=== PATIENT | male | born 1940 | race Hispanic/Latino ===

== ENCOUNTER 2017-08-29 13:16 | Emergency (ER) | payer OTHER ==
[2017-08-29 14:21] LABS: Potassium 4.8 mEq/L (3.6-5.0)
--- NOTE | 2017-08-29 14:28 | ER ---
Nurse's Notes [facility] Name: Winston Acuña Age: 77 yrs Sex: Male : 1940 Arrival Date: 08/29/2017 Time: 13:18 Bed 16 Private MD: Diagnosis: Potassium check - reported as abdnomal, now normal 4.8 Presentation: 08/29 13:30 Presenting complaint: Patient states: had a blood work yesterday and PCP called today hj because potassium was so high; unknown results; reports bloating;. Transition of care: patient was not received from another setting of care. Onset of symptoms was August 29, 2017. Care prior to arrival: None. 13:30 Method Of Arrival: Ambulatory 13:30 Acuity: ANIKA 3 hj Triage Assessment: 13:33 General: Appears in no apparent distress. uncomfortable, Behavior is calm, cooperative, hj appropriate for age. Pain: Complains of pain in abdomen. Historical: - Allergies: 13:33 No Known Drug Allergies; hj - Home Meds: 13:33 donepezil 10 mg Oral tab 1 tab once daily [Active]; fenofibrate 67mg Oral 1 cap once hj daily [Active]; gabapentin 300 mg Oral cap 1 cap 3 times per day [Active]; Januvia 50 mg Oral tab [Active]; losartan-hydrochlorothiazide 100-25 mg Oral tab 1 tab once daily [Active]; Novolin 70/30 [place] Sub-Q [Active]; omeprazole 20 mg Oral cpDR 1 cap once daily [Active]; simvastatin 40 mg Oral tab 1 tab once daily [Active]; venlafaxine 75 mg Oral tab 1 tab daily [Active]; - PMHx: 13:33 Dementia; Diabetes - IDDM; High Cholesterol; Hypertension; neuropathy; hj - PSHx: 13:33 Knee surgery; finger amputation; hj - Immunization history:: Adult Immunizations up to date. - Social history:: Smoking status: unknown. Screenin:52 Abuse screen: Denies threats or abuse. Nutritional screening: No deficits noted. la1 Tuberculosis screening: No symptoms or risk factors identified. Fall Risk None identified. Assessment: 13:52 General: Appears in no apparent distress. Behavior is calm, cooperative. Neuro: Level la1 of Consciousness is awake, alert, obeys commands. Neuro: Gait is steady, Speech is normal, Facial symmetry appears normal, Pupils are PERRLA. Cardiovascular: Denies chest pain, lightheadedness, nausea, palpitations, shortness of breath, vomiting, Capillary refill < 3 seconds Patient's skin is warm and dry. Respiratory: Airway is patent Respiratory effort is even, unlabored, Respiratory pattern is regular, symmetrical. GI: No signs and/or symptoms were reported involving the gastrointestinal system. GI: Abdomen is round non-distended. : No signs and/or symptoms were reported regarding the genitourinary system. 14:53 Reassessment: awaiting completion of D/C paperwork from [facility]. la1 Vital Signs: 13:33 BP 127 / 55; Pulse 83; Resp 18; Temp 97.8(TE); Pulse Ox 100% on R/A; Weight 84.82 kg; hj Height 5 ft. 2 in. (157.48 cm); 13:33 Body Mass Index 34.20 (84.82 kg, 157.48 cm) ED Course: 13:18 Patient arrived in ED. tw3 13:31 Triage completed. hj 13:32 Raudel Romero MD is Attending Physician. kdr 13:33 Arm band placed on right wrist. hj 13:36 Romain Toledo RN is Primary Nurse. la1 13:52 Placed in gown. Bed in low position. Call light in reach. la1 13:52 Inserted saline lock: 22 gauge in left hand, using aseptic technique. la1 14:26 Britton Barroso MD is Referral Physician. kdr 14:32 No provider procedures requiring assistance completed. IV discontinued, intact, la1 bleeding controlled, No redness/swelling at site. Pressure dressing applied. Administered Medications: No medications were administered Outcome: 14:27 Discharge ordered by . kdr 15:14 Discharged to home ambulatory. la1 15:14 Condition: stable 15:14 Discharge instructions given to patient, Instructed on discharge instructions, follow up and referral plans. medication usage, Demonstrated understanding of instructions, follow-up care. 15:15 Patient left the ED. la1 Signatures: Raudel Romero MD MD kdr Romain Toledo RN RN la1 Jose Curz Arrington RN RN Marissa Torres tw3 Corrections: (The following items were deleted from the chart) 13:35 13:33 Pulse 83bpm; Resp 18bpm; Pulse Ox 100% RA; Temp 97.8F Temporal; 84.82 kg; Height hj 5 ft. 2 in.; BMI: 34.2; hj
--- NOTE | 2017-08-29 14:28 | EDPHYS ---
Physician Documentation [facility] Name: Winston Acuña Age: 77 yrs Sex: Male : 1940 Arrival Date: 08/29/2017 Time: 13:18 Bed 16 Private MD: ED Physician Raudel Romero HPI: 08/29 14:29 This 77 yrs old Male presents to ER via Ambulatory with complaints of HIGH kdr POTASSIUM. 14:29 The patient states that he had his blood drawn yesterday and has been told that his kdr potassium was high (6.0). He spoke with Dr. Morales who asked that the patient come back to the ED for Kayexalate since he could not find any to give him as an ooutpatient. 18:52 Onset: The symptoms/episode began/occurred yesterday. Severity of symptoms: At their kdr worst the symptoms were very mild in the emergency department the symptoms are unchanged have resolved. The patient has not recently seen a physician. Historical: - Allergies: 13:33 No Known Drug Allergies; - Home Meds: 13:33 donepezil 10 mg Oral tab 1 tab once daily [Active]; fenofibrate 67mg Oral 1 cap once hj daily [Active]; gabapentin 300 mg Oral cap 1 cap 3 times per day [Active]; Januvia 50 mg Oral tab [Active]; losartan-hydrochlorothiazide 100-25 mg Oral tab 1 tab once daily [Active]; Novolin 70/30 [place] Sub-Q [Active]; omeprazole 20 mg Oral cpDR 1 cap once daily [Active]; simvastatin 40 mg Oral tab 1 tab once daily [Active]; venlafaxine 75 mg Oral tab 1 tab daily [Active]; - PMHx: 13:33 Dementia; Diabetes - IDDM; High Cholesterol; Hypertension; neuropathy; hj - PSHx: 13:33 Knee surgery; finger amputation; hj - Immunization history:: Adult Immunizations up to date. - Social history:: Smoking status: unknown. ROS: 18:52 Constitutional: Negative for fever, chills, and weight loss, Eyes: Negative for injury, kdr pain, redness, and discharge, ENT: Negative for injury, pain, and discharge, Neck: Negative for injury, pain, and swelling, Cardiovascular: Negative for chest pain, palpitations, and edema, Respiratory: Negative for shortness of breath, cough, wheezing, and pleuritic chest pain, Abdomen/GI: Negative for abdominal pain, nausea, vomiting, diarrhea, and constipation, Back: Negative for injury and pain, : Negative for injury, bleeding, discharge, and swelling, MS/Extremity: Negative for injury and deformity, Skin: Negative for injury, rash, and discoloration, Neuro: Negative for headache, weakness, numbness, tingling, and seizure activity. Psych: Negative for depression, anxiety, suicide ideation, homicidal ideation, and hallucinations, Allergy/Immunology: Negative for hives, rash, and allergies, Endocrine: Negative for neck swelling, polydipsia, polyuria, polyphagia, and marked weight changes, Hematologic/Lymphatic: Negative for swollen nodes, abnormal bleeding, and unusual bruising. Exam: 18:52 Constitutional: This is a well developed, well nourished patient who is awake, alert, kdr and in no acute distress. Head/Face: Normocephalic, atraumatic. Chest/axilla: Normal chest wall appearance and motion. Nontender with no deformity. No lesions are appreciated. Cardiovascular: Regular rate and rhythm with a normal S1 and S2. No gallops, murmurs, or rubs. Normal PMI, no JVD. No pulse deficits. Respiratory: Lungs have equal breath sounds bilaterally, clear to auscultation and percussion. No rales, rhonchi or wheezes noted. No increased work of breathing, no retractions or nasal flaring. Abdomen/GI: Soft, non-tender, with normal bowel sounds. No distension or tympany. No guarding or rebound. No evidence of tenderness throughout. Back: No spinal tenderness. No costovertebral tenderness. Full range of motion. Skin: Warm, dry with normal turgor. Normal color with no rashes, no lesions, and no evidence of cellulitis. MS/ Extremity: Pulses equal, no cyanosis. Neurovascular intact. Full, normal range of motion. Neuro: Awake and alert, GCS 15, oriented to person, place, time, and situation. Cranial nerves II-XII grossly intact. Motor strength 5/5 in all extremities. Sensory grossly intact. Cerebellar exam normal. Normal gait. Psych: Awake, alert, with orientation to person, place and time. Behavior, mood, and affect are within normal limits. Vital Signs: 13:33 BP 127 / 55; Pulse 83; Resp 18; Temp 97.8(TE); Pulse Ox 100% on R/A; Weight 84.82 kg; hj Height 5 ft. 2 in. (157.48 cm); 13:33 Body Mass Index 34.20 (84.82 kg, 157.48 cm) MDM: 14:27 Patient medically screened. kdr 18:52 Data reviewed: vital signs, nurses notes, lab test result(s). Counseling: I had a kdr detailed discussion with the patient and/or guardian regarding: the historical points, exam findings, and any diagnostic results supporting the discharge/admit diagnosis, lab results, the need for outpatient follow up. Physician consultation: Britton Barroso MD regarding patient's condition, and will see patient in office, next week. 08/29 13:32 Order name: Chem 7; Complete Time: 14:24 kdr 08/29 13:55 Order name: EKG - Nurse/Tech; Complete Time: 14:06 kdr Administered Medications: No medications were administered Disposition: 08/29/17 14:27 Discharged to Home. Impression: Potassium check - reported as abdnomal, now normal 4.8. - Condition is Stable. - Blank Diagnosis Outline, Medication Reconciliation Form, Thank You Letter form. - Follow up: Britton Barroso MD; When: As needed; Reason: If symptoms return, Further diagnostic work-up, Recheck today's complaints, Continuance of care, Re-evaluation by your physician. - Problem is new. - Symptoms are resolved. Signatures: Dispatcher [employer] EDMS Raudel Romero MD MD [facility] Romain Toledo RN RN scJose Cruz Seaman RN RN
[2017-08-29 15:32] VITALS: BP 127/55; TEMP 97.8; O2SAT 100
--- NOTE | 2017-08-30 07:38 | EKG ---
Test Date: 2017-08-29 Test Time: 14:06:57 [employer] Professor: LA MEASUREMENT RESULTS: Intervals: Rate: 49 NM: 212 QRSD: 74 QT: 432 QTc: 390 [place]: P: 48 NM: 212 QRS: 32 T: 101 INTERPRETIVE STATEMENTS: Sinus bradycardia with 1st degree AV block T wave abnormality, consider anterior ischemia Abnormal ECG Compared to ECG 07/24/2016 13:29:15 First degree AV block now present T-wave abnormality now present Possible ischemia now present ST (T wave) deviation no longer present Electronically Signed On 08-30-17 07:37:28 CDT by Bashir Pearl
== END 2017-08-29 15:15 | disposition home or self-care (01) ==
LOC: ER 13:16
DX: R79.89 Other specified abnormal findings of blood chemistry (principal); I10 Essential (primary) hypertension; E11.9 Type 2 diabetes mellitus without complications; F03.90 Unspecified dementia, unspecified severity, without behavioral disturbance, psychotic disturbance, mood disturbance, and anxiety; E78.00 Pure hypercholesterolemia, unspecified; Z79.4 Long term (current) use of insulin
CPT/HCPCS: 36415; 80048; 93005; 99283

== ENCOUNTER 2017-12-08 12:59 | Emergency (ER) | payer OTHER ==
[2017-12-08] MEDS ORDERED: ONDANSETRON 4 MG/2 ML VIAL ONE (13:48)
[2017-12-08] MEDS ORDERED: MORPHINE 4 MG/ML SYR ONE (13:48)
[2017-12-08 14:04] LABS: Protime INR 0.99
--- NOTE | 2017-12-08 14:04 | RAD REPORT ---
EXAM DESCRIPTION: RAD - Chest Single View - 12/08/2017 1:58 pm CLINICAL HISTORY: TRAUMA Chest pain. COMPARISON: Chest Single View dated 07/24/2016; CHEST PA AND LAT 2 VIEW dated 04/30/2015 FINDINGS: Portable technique limits examination quality. The lungs are grossly clear. The heart is normal in size. No displaced fractures. IMPRESSION: No acute intrathoracic process suspected.
--- NOTE | 2017-12-08 14:15 | EKG ---
Test Date: 2017-12-08 Test Time: 13:11:54 Almond Sorter: SANDRA MEASUREMENT RESULTS: Intervals: Rate: 55 MD: 206 QRSD: 74 QT: 410 QTc: 392 [place]: P: 52 MD: 206 QRS: 8 T: 65 INTERPRETIVE STATEMENTS: Sinus bradycardia Nonspecific T wave abnormality Abnormal ECG Compared to ECG 08/29/2017 14:06:57 First degree AV block no longer present Possible ischemia no longer present T-wave abnormality still present Electronically Signed On 12-08-17 14:15:11 CDT by Bashir Pearl
[2017-12-08 14:16] LABS: ALT/SGPT 30 U/L (12-78); AST/SGOT 23 U/L (15-37); Albumin 3.9 g/dL (3.4-5.0); Alkaline Phosphatase 51 U/L (45-117); Amylase Level 69 U/L (25-115); BUN Blood Urea Nitrogen 25 mg/dL (7-18); Bicarbonate 28 mmol/L (21-32); Bilirubin Direct < 0.1 mg/dL (0-0.2); Bilirubin Total 0.3 mg/dL (0.2-1.0); CKMB Creatine Kinase MB < 1.0 ng/mL (0.3-3.6); Creatine Phosphokinase 69 U/L (39-308); Glucose Level 351 mg/dL (74-106); Lipase 619 U/L (73-393); Magnesium 2.4 mg/dL (1.8-2.4); NT PRO-BNP 488 pg/mL (<450); Potassium 4.5 mmol/L (3.5-5.1); Protein, Total 7.5 g/dL (6.4-8.2); Sodium Level 134 mmol/L (136-145)
[2017-12-08 14:25] LABS: Absolute Lymphocytes (CBC) 0.8 K/uL (0.7-4.9); Absolute Monocytes 0.6 K/uL (0.1-1.3); Basophils % 0.6 % (0-1.3); Eosinophils % 2.6 % (0-4.4); Hematocrit 31.8 % (39.6-49.0); Lymphocytes % 13.5 % (15.3-44.8); MCH 31.2 pg (27.0-35.0); Monocytes % 10.8 % (3.3-12.3); RBC Red Blood Cell Count 3.53 M/uL (4.33-5.43)
[2017-12-08 14:43] LABS: Urine Blood NEGATIVE (NEG); Urine Glucose 3+ (NEG); Urine Protein 1+ (NEG); Urine Specific Gravity 1.015 (1.005-1.030); Urine pH 5.5 (5.0-7.0)
--- NOTE | 2017-12-08 14:52 | RAD REPORT ---
EXAM DESCRIPTION: VAS - Extrem Venous W Compress Paul - 12/08/2017 2:41 pm CLINICAL HISTORY: SWELLING Bilateral leg edema and swelling. COMPARISON: <Comparisons> TECHNIQUE: Real-time sonographic interrogation of the left and right lower extremity deep venous sys tems was performed. FINDINGS: Normal compressibility, flow augmentation, phasic flow and spontaneous flow is identified in both the left and right lower extremity deep venous systems. IMPRESSION: No sonographic evidence of left or right lower extremity deep venous thrombosis.
--- NOTE | 2017-12-08 15:10 | RAD REPORT ---
EXAM DESCRIPTION: CT - Chest Abd Pelvis Wo Con - 12/08/2017 2:53 pm CLINICAL HISTORY: Chest and abdomen pain. ABD PAIN COMPARISON: Chest Single View dated 12/08/2017; Chest Single View dated 07/24/2016 TECHNIQUE: A noncontrast study was performed. All CT scans are performed using dose optimization technique as appropriate and may include automated exposure control or mA/KV adjustment according to patient size. FINDINGS: The lungs are clear.No pleural or pericardial effusion.No intrathoracic adenopathy. The liver, spleen, pancreas, adrenal glands and kidneys are within normal limits. No bowel obstruction, free air, free fluid or abscess. Normal appendix. No pathologic lymphadenopath y in the abdomen or pelvis. Thin lucency is seen in the superior aspect of the body of the sternum compatible with nondisplaced f racture. IMPRESSION: Nondisplaced fracture involving the superior body of the sternum.
--- NOTE | 2017-12-08 16:30 | ER ---
Nurse's Notes [facility] Name: Winston Acuña Age: 77 yrs Sex: Male : 1940 Arrival Date: 12/08/2017 Time: 13:00 Bed 23 Private MD: Britton Barroso V Diagnosis: Fracture of sternum;Edema, unspecified Presentation: 12/08 13:05 Presenting complaint: Child states: fall that happened at 0200 this morning, fell face sv down onto carpet. Pt was dizzy beforehand. Head injury but denies LOC. c/o midsternal CP with breathing. Bruise noted to left hand. Care prior to arrival: None. Mechanism of Injury: Fall from standing position. 13:05 Acuity: ANIKA 3 sv 13:05 Method Of Arrival: Wheelchair sv 13:09 Transition of care: patient was not received from another setting of care. Onset of sv symptoms was December 08, 2017 at 02:00. 16:55 Risk Assessment: Do you want to hurt yourself or someone else? Patient reports no tl3 desire to harm self or others. Initial Sepsis Screen: Does the patient meet any 2 criteria? No. Patient's initial sepsis screen is negative. Does the patient have a suspected source of infection? No. Patient's initial sepsis screen is negative. Historical: - Allergies: 13:08 No Known Allergies; sv - Home Meds: 13:08 donepezil 10 mg Oral tab 1 tab once daily [Active]; fenofibrate 67mg Oral 1 cap once sv daily [Active]; gabapentin 300 mg Oral cap 1 cap 3 times per day [Active]; Januvia 50 mg Oral tab [Active]; losartan-hydrochlorothiazide 100-25 mg Oral tab 1 tab once daily [Active]; Novolin 70/30 [place] Sub-Q [Active]; omeprazole 20 mg Oral cpDR 1 cap once daily [Active]; simvastatin 40 mg Oral tab 1 tab once daily [Active]; venlafaxine 75 mg Oral tab 1 tab daily [Active]; - PMHx: 13:08 Dementia; Diabetes - IDDM; High Cholesterol; Hypertension; neuropathy; sv - PSHx: 13:08 Knee surgery; finger amputation; sv - Immunization history:: Adult Immunizations up to date. - Social history:: Smoking status: unknown. - Family history:: not pertinent. - Ebola Screening: : No symptoms or risks identified at this time. - Hospitalizations: : No recent hospitalization is reported. - History obtained from: son, daughter. Screenin:27 Abuse screen: Denies threats or abuse. Nutritional screening: No deficits noted. tl3 Tuberculosis screening: No symptoms or risk factors identified. Fall Risk Fall in past 12 months (25 points). Assessment: 13:17 General: Appears in no apparent distress. comfortable, well groomed, well developed, tl3 well nourished, Behavior is calm, cooperative, appropriate for age. Pain: Complains of pain in epigastric area. Neuro: Level of Consciousness is awake, alert, obeys commands, Oriented to person, place, time, situation, Appropriate for age. Neuro: Reports dizziness, since 2 am pt got up to go to the bathroom and felt dizzy, but got up anyway then fell forward and hit the carpet, C/o epigastric pain. Cardiovascular: Heart tones S1 S2 present Patient's skin is warm and dry. Respiratory: Airway is patent Respiratory effort is even, unlabored, Respiratory pattern is regular, symmetrical, Breath sounds are clear bilaterally. GI: No signs and/or symptoms were reported involving the gastrointestinal system. Abdomen is round. : No signs and/or symptoms were reported regarding the genitourinary system. EENT: No signs and/or symptoms were reported regarding the EENT system. Derm: No signs and/or symptoms reported regarding the dermatologic system. Musculoskeletal: No signs and/or symptoms reported regarding the musculoskeletal system. 14:23 Reassessment: No changes from previously documented assessment. Patient and/or family tl3 updated on plan of care and expected duration. Pain level reassessed. Patient is alert, oriented x 3, equal unlabored respirations, skin warm/dry/pink. ultrasound in progress, family at bedside. 16:14 Reassessment: No changes from previously documented assessment. Patient and/or family tl3 updated on plan of care and expected duration. Pain level reassessed. Patient is alert, oriented x 3, equal unlabored respirations, skin warm/dry/pink. pt resting quietly. 16:53 Reassessment: Patient appears in no apparent distress at this time. No changes from tl3 previously documented assessment. Patient and/or family updated on plan of care and expected duration. Pain level reassessed. Patient is alert, oriented x 3, equal unlabored respirations, skin warm/dry/pink. Vital Signs: 13:08 BP 154 / 62; Pulse 56; Resp 18; Pulse Ox 97% ; Weight 83.91 kg; Height 5 ft. 2 in. sv (157.48 cm); 14:23 BP 145 / 66; Pulse 53; Resp 18; Pulse Ox 98% ; tl3 15:38 BP 160 / 65 LA Supine (auto/reg); Pulse 51 MON; Resp 15 S; Pulse Ox 97% on R/A; jp3 16:14 BP 144 / 65; Pulse 51; Resp 18; Pulse Ox 100% ; tl3 13:08 Body Mass Index 33.84 (83.91 kg, 157.48 cm) sv Gen Coma Score: 13:08 Eye Response: spontaneous(4). Verbal Response: oriented(5). Motor Response: obeys sv commands(6). Total: 15. ED Course: 13:00 Patient arrived in ED. rg4 13:01 Britton Barroso MD is Private Physician. rg4 13:07 Triage completed. sv 13:15 Nguyen Aldana FNP is PHCP. kav 13:15 Reza Stevens MD is Attending Physician. kav 13:16 Yuridia Shelby, NATALIO is Primary Nurse. tl3 13:22 EKG done, by it technical support specialist. reviewed by Nguyen CHOUDHURY. at1 13:27 No provider procedures requiring assistance completed. tl3 13:27 Patient has correct armband on for positive identification. Bed in low position. Call tl3 light in reach. Adult w/ patient. Pulse ox on. NIBP on. 13:42 XRAY Chest (1 view) Sent. tl3 13:43 Basic Metabolic Panel Sent. tl3 13:58 XRAY Chest (1 view) In Process Unspecified. EDMS 14:39 US Extremity Venous W Compression Paul In Process Unspecified. EDMS 14:[address] via stretcher. sw 14:54 Chest Abd Pelvis Wo Con In Process Unspecified. EDMS 15:10 Second set of blood cultures drawn drawn via left A/C through a 23gauge butterfly jp3 needle. 15:32 Repeat lab(s) drawn. by ms, sent to lab. jp3 16:25 Britton Barroso MD is Referral Physician. kav 16:29 Bashir Pearl MD is Referral Physician. kav 16:53 IV discontinued, intact, bleeding controlled, No redness/swelling at site. Pressure tl3 dressing applied. 16:56 Arm band placed on right wrist. tl3 Administered Medications: 14:18 Drug: morphine 4 mg Route: IVP; Infused Over: 3 mins; Site: right antecubital; tl3 16:15 Follow up: Response: No adverse reaction; Pain is decreased tl3 14:18 Drug: Zofran 4 mg Route: IVP; Infused Over: 2 mins; Site: right antecubital; tl3 16:15 Follow up: Response: No adverse reaction tl3 Outcome: 16:30 Discharge ordered by MD. kav 16:54 Discharged to home via wheelchair, with family. tl3 16:54 Condition: stable 16:54 Discharge instructions given to patient, family, Instructed on discharge instructions, follow up and referral plans. medication usage, Demonstrated understanding of instructions, follow-up care, medications, Prescriptions given X 1. 16:56 Patient left the ED. tl3 Signatures: Dispatcher [employer] Marcela Mckinney, RN RN Nguyen Steinberg, SYRUP M[employer]ER SYRUP MIXER Lisa schultz, vice president fixed income EKG Tat1 Carol Shaw Rubi rg4 Yuridia Shelby RN RN tl3 Darryl Vigil jp3
--- NOTE | 2017-12-08 16:30 | EDPHYS ---
Physician Documentation [facility] Name: Winston Acuña Age: 77 yrs Sex: Male : 1940 Arrival Date: 12/08/2017 Time: 13:00 Bed 23 Private MD: Britton Barroso V ED Physician Reza Stevens HPI: 12/08 13:15 This 77 yrs old Male presents to ER via Wheelchair with complaints of Fall kav Injury. 14:29 Details of fall: The patient fell from a supine position, out of bed. Onset: The kav symptoms/episode began/occurred acutely, 11 hour(s) ago. Associated injuries: The patient sustained left breast. Severity of symptoms: At their worst the symptoms were severe, just prior to arrival. The patient has not experienced similar symptoms in the past. The patient has not recently seen a physician. Baseline creatinine 1.7. . Historical: - Allergies: 13:08 No Known Allergies; sv - Home Meds: 13:08 donepezil 10 mg Oral tab 1 tab once daily [Active]; fenofibrate 67mg Oral 1 cap once sv daily [Active]; gabapentin 300 mg Oral cap 1 cap 3 times per day [Active]; Januvia 50 mg Oral tab [Active]; losartan-hydrochlorothiazide 100-25 mg Oral tab 1 tab once daily [Active]; Novolin 70/30 [place] Sub-Q [Active]; omeprazole 20 mg Oral cpDR 1 cap once daily [Active]; simvastatin 40 mg Oral tab 1 tab once daily [Active]; venlafaxine 75 mg Oral tab 1 tab daily [Active]; - PMHx: 13:08 Dementia; Diabetes - IDDM; High Cholesterol; Hypertension; neuropathy; sv - PSHx: 13:08 Knee surgery; finger amputation; sv - Immunization history:: Adult Immunizations up to date. - Social history:: Smoking status: unknown. - Family history:: not pertinent. - Ebola Screening: : No symptoms or risks identified at this time. - Hospitalizations: : No recent hospitalization is reported. - History obtained from: son, daughter. ROS: 14:30 Constitutional: Negative for fever, chills, and weight loss, Eyes: Negative for injury, kav pain, redness, and discharge, ENT: Negative for injury, pain, and discharge, Neck: Negative for injury, pain, and swelling, Respiratory: Negative for shortness of breath, cough, wheezing, and pleuritic chest pain, Abdomen/GI: Negative for abdominal pain, nausea, vomiting, diarrhea, and constipation, Back: Negative for injury and pain, : Negative for injury, bleeding, discharge, and swelling, MS/Extremity: Negative for injury and deformity, Skin: Negative for injury, rash, and discoloration, Neuro: Negative for headache, weakness, numbness, tingling, and seizure, Psych: Negative for depression, anxiety, suicide ideation, homicidal ideation, and hallucinations, Allergy/Immunology: Negative for hives, rash, and allergies, Endocrine: Negative for neck swelling, polydipsia, polyuria, polyphagia, and marked weight changes, Hematologic/Lymphatic: Negative for swollen nodes, abnormal bleeding, and unusual bruising. 14:30 Cardiovascular: Positive for chest pain, of the left breast. Exam: 14:30 Constitutional: This is a well developed, well nourished patient who is awake, alert, kav and in no acute distress. Head/Face: Normocephalic, atraumatic. Eyes: Pupils equal round and reactive to light, extra-ocular motions intact. Lids and lashes normal. Conjunctiva and sclera are non-icteric and not injected. Cornea within normal limits. Periorbital areas with no swelling, redness, or edema. ENT: Nares patent. No nasal discharge, no septal abnormalities noted. Tympanic membranes are normal and external auditory canals are clear. Oropharynx with no redness, swelling, or masses, exudates, or evidence of obstruction, uvula midline. Mucous membranes moist. Neck: Trachea midline, no thyromegaly or masses palpated, and no cervical lymphadenopathy. Supple, full range of motion without nuchal rigidity, or vertebral point tenderness. No Meningismus. Chest/axilla: Normal chest wall appearance and motion. Nontender with no deformity. No lesions are appreciated. Abdomen/GI: Soft, non-tender, with normal bowel sounds. No distension or tympany. No guarding or rebound. No evidence of tenderness throughout. Back: No spinal tenderness. No costovertebral tenderness. Full range of motion. Skin: Warm, dry with normal turgor. Normal color with no rashes, no lesions, and no evidence of cellulitis. MS/ Extremity: Pulses equal, no cyanosis. Neurovascular intact. Full, normal range of motion. Neuro: Awake and alert, GCS 15, oriented to person, place, time, and situation. Cranial nerves II-XII grossly intact. Motor strength 5/5 in all extremities. Sensory grossly intact. Cerebellar exam normal. Normal gait. Psych: Awake, alert, with orientation to person, place and time. Behavior, mood, and affect are within normal limits. 14:30 Cardiovascular: Rate: normal, Rhythm: regular, Pulses: no pulse deficits are appreciated, Pulses are 2+ in right femoral artery, right dorsalis pedis artery, left femoral artery, left dorsalis pedis artery, left carotid pulse and right carotid pulse. Heart sounds: normal, normal S1and S2. 14:30 ECG was reviewed by the Attending Physician. NSR 14:30 Respiratory: the patient does not display signs of respiratory distress, Respirations: kav normal, no acute changes, Breath sounds: decreased breath sounds, that are mild, are located in both bases. Vital Signs: 13:08 BP 154 / 62; Pulse 56; Resp 18; Pulse Ox 97% ; Weight 83.91 kg; Height 5 ft. 2 in. sv (157.48 cm); 14:23 BP 145 / 66; Pulse 53; Resp 18; Pulse Ox 98% ; tl3 15:38 BP 160 / 65 LA Supine (auto/reg); Pulse 51 MON; Resp 15 S; Pulse Ox 97% on R/A; jp3 16:14 BP 144 / 65; Pulse 51; Resp 18; Pulse Ox 100% ; tl3 13:08 Body Mass Index 33.84 (83.91 kg, 157.48 cm) sv Gen Coma Score: 13:08 Eye Response: spontaneous(4). Verbal Response: oriented(5). Motor Response: obeys sv commands(6). Total: 15. MDM: 13:19 Medical screening is not applicable. ka 15:17 Data reviewed: vital signs, nurses notes, lab test result(s), EKG, radiologic studies, critical access hospital CT scan, plain films. ED course: awaiting second troponin. 12/08 13:18 Order name: Basic Metabolic Panel critical [facility] 12/08 13:18 Order name: CBC with Diff; Complete Time: 14:42 critical access hospital 12/08 13:18 Order name: Ckmb; Complete Time: 14:22 12/08 13:18 Order name: CPK; Complete Time: 14:22 v 12/08 13:18 Order name: LFT's; Complete Time: 14:22 v 12/08 13:18 Order name: Magnesium; Complete Time: 14:22 v 12/08 13:18 Order name: NT PRO-BNP; Complete Time: 14:22 v 12/08 13:18 Order name: PT-INR; Complete Time: 14:22 v 12/08 13:18 Order name: Ptt, Activated; Complete Time: 14:22 v 12/08 13:18 Order name: Troponin (emerg Dept Use Only); Complete Time: 14:13 v 12/08 13:18 Order name: Basic Metabolic Panel; Complete Time: 14:22 EDMS 12/08 13:19 Order name: Amylase, Serum; Complete Time: 14:v 12/08 13:19 Order name: Blood Culture Adult (2) 12/08 13:19 Order name: D-Dimer; Complete Time: 14:22 v 12/08 13:13 Order name: EKG; Complete Time: 13:13 sv 12/08 13:13 Order name: EKG - Nurse/Tech; Complete Time: 13:17 sv 12/08 13:18 Order name: XRAY Chest (1 view); Complete Time: 14:13 v 12/08 13:18 Order name: Cardiac monitoring; Complete Time: 13:42 v 12/08 13:18 Order name: IV Saline Lock; Complete Time: 13:42 v 12/08 13:18 Order name: Labs collected and sent; Complete Time: 13:42 v 12/08 13:18 Order name: O2 Per Protocol; Complete Time: 13:42 v 12/08 13:19 Order name: Lipase; Complete Time: 14:22 v 12/08 13:26 Order name: US Extremity Venous W Compression Paul; Complete Time: 15:13 kav 12/08 14:36 Order name: Urine Dipstick--Ancillary (enter results); Complete Time: 15:13 bd 12/08 14:38 Order name: Chest Abd Pelvis Wo Con; Complete Time: 15:13 EDMS 12/08 15:17 Order name: Troponin (emerg Dept Use Only); Complete Time: 16:24 v 12/08 13:18 Order name: O2 Sat Monitoring; Complete Time: 13:42 kav Administered Medications: 14:18 Drug: morphine 4 mg Route: IVP; Infused Over: 3 mins; Site: right antecubital; tl3 16:15 Follow up: Response: No adverse reaction; Pain is decreased tl3 14:18 Drug: Zofran 4 mg Route: IVP; Infused Over: 2 mins; Site: right antecubital; tl3 16:15 Follow up: Response: No adverse reaction tl3 Disposition: 18:03 Co-signature as Attending Physician, Reza Stevens MD. rn Disposition: 12/08/17 16:30 Discharged to Home. Impression: Fracture of sternum, Edema, unspecified. - Condition is Stable. - Discharge Instructions: Sternal Fracture, Edema, [id number]. - Prescriptions for Tylenol- Codeine #3 300-30 mg Oral Tablet - take 2 tablet by ORAL route every 6 hours As needed; 30 tablet. - Medication Reconciliation Form, Thank You Letter, Antibiotic Education, Prescription Opioid Use form. - Follow up: Britton Barroso MD; When: 2 - 3 days; Reason: Recheck today's complaints, Continuance of care, Re-evaluation by your physician. Follow up: Bashir Pearl MD; When: 2 - 3 days; Reason: Recheck today's complaints, Continuance of care, Re-evaluation by your physician. - Problem is new. - Symptoms have improved. - Notes: f/u with cardiology for a complete cardiology work-up for bilateral lower extremity edema. Signatures: Dispatcher [employer] [facility] Marcela Aguila, RN Nguyen Reddy, PAYROLL BOOKKEEPER PA[employer]ROLL BOOKKEEPER Reza Vanegas MD MD rn Lowrey, Tammy, RN RN tl3 Corrections: (The following items were deleted from the chart) 14:38 13:26 Chest For PE Angio+CT.RAD.BRZ ordered. [facility] 14:38 14:25 Abdomen Pelvis Wo Con+CT.RAD.BRZ ordered. [facility] 16:56 16:30 12/08/2017 16:30 Discharged to Home. Impression: Fracture of sternum; Edema, tl3 unspecified. Condition is Stable. Forms are Medication Reconciliation Form, Thank You Letter, Antibiotic Education, Prescription Opioid Use. Follow up: Britton Barroso; When: 2 - 3 days; Reason: Recheck today's complaints, Continuance of care, Re-evaluation by your physician. Follow up: Bashir Pearl; When: 2 - 3 days; Reason: Recheck today's complaints, Continuance of care, Re-evaluation by your physician. Problem is new. Symptoms have improved. kav
[2017-12-08 17:04] VITALS: BP 144/65; O2SAT 100
== END 2017-12-08 16:56 | disposition home or self-care (01) ==
LOC: ER 12:59
DX: S22.20XA Unspecified fracture of sternum, initial encounter for closed fracture (principal); R60.9 Edema, unspecified; E11.9 Type 2 diabetes mellitus without complications; I10 Essential (primary) hypertension; W06.XXXA Fall from bed, initial encounter; Y93.9 Activity, unspecified; Y92.9 Unspecified place or not applicable; Y99.9 Unspecified external cause status; Z79.4 Long term (current) use of insulin
CPT/HCPCS: 36415; 71045; 71250; 74176; 80048; 80076; 81003; 82150; 82550; 82553; 83690; 83735; 83880; 84484 ×2; 85025; 85379; 85610; 85730; 87040 ×2; 93005; 93970; 96374; 96375; 99284; J2405